=== PATIENT | male | born 1940 | race Caucasian/White ===

== ENCOUNTER 2018-09-20 18:31 | Emergency (ER) | payer OTHER ==
[~2018-09-20] VITALS: Ht 182.9 cm; Wt 72.6 kg
[~2018-09-20 18:31] MED LIST: ALBU90OI6 INH; AZIT500 PO; CEFD300 PO; FINA5 PO; GABA100 PO; HYDACE10B PO; HYDACE5 PO; Hydrocodone-Ap1 EA20 PO; IBUP800 PO; LISI5 PO; OXYC15ER PO; OXYMETAZOLINE; PROM25 PO; Percocet 5-3251 EACH PO; ROBITUSSIN100 MG/5 M PO; SIMV10 PO; VALACYCLOVIR1000 MG PO; [UNRECOGNIZED DRUG - REMARK]
== END 2018-09-20 19:49 | disposition home or self-care (01) ==
LOC: ER 18:31
DX: S01.81XA Laceration without foreign body of other part of head, initial encounter (principal); S16.1XXA Strain of muscle, fascia and tendon at neck level, initial encounter; F10.129 Alcohol abuse with intoxication, unspecified; W01.198A Fall on same level from slipping, tripping and stumbling with subsequent striking against other object, initial encounter; I10 Essential (primary) hypertension; E78.5 Hyperlipidemia, unspecified; F17.210 Nicotine dependence, cigarettes, uncomplicated
CPT/HCPCS: 70450; 72125; 99284-25

== ENCOUNTER → 2020-11-02 | Outpatient (CLI) | payer OTHER ==
[2020-11-02 19:36] LABS: Red Blood Cells, Urine 0-2 /hpf (0-2); White Blood Cells, Urine 0-2 /hpf (0-5)
[2020-11-02 19:37] LABS: Bacteria Rare /hpf; Other Crystals Few /hpf; Squamous Epithelial Cells Not Seen /hpf (Few)
== END ==
LOC: LAB SHORT 13:40
PROVIDERS: Nurse Practitioner Family
DX: N40.1 Benign prostatic hyperplasia with lower urinary tract symptoms (principal); R31.9 Hematuria, unspecified; R63.4 Abnormal weight loss
CPT/HCPCS: 81015

== ENCOUNTER 2021-01-26 11:15 | Emergency (ER) | payer OTHER ==
[~2021-01-26] VITALS: Ht 180.3 cm; Wt 68.0 kg
[2021-01-26] MEDS ORDERED: FLUTICASONE-SA1 EAC1 INH (13:57)
[2021-01-26] MEDS ORDERED: SILODOSIN8 MG PO (13:57)
[2021-01-26 15:31] LABS: BASOPHILS ABSOLUTE AUTO 0.08 K/mm3 (0.00-0.23); BASOPHILS PERCENT AUTO 1 % (0-2); EOSINOPHILS ABSOLUTE AUTO 0.39 K/mm3 (0.00-0.68); EOSINOPHILS PERCENT AUTO 3 % (0-6); Hematocrit 38.7 % (37.0-53.0); IMMATURE GRAN ABSOLUTE AUTO 0.04 K/mm3 (0.00-0.10); IMMATURE GRAN PERCENT AUTO 0 % (0-1); LYMPHOCYTES ABSOLUTE AUTO 3.02 K/mm3 (0.84-5.20); LYMPHOCYTES PERCENT AUTO 24 % (21-46); MONOCYTES ABSOLUTE AUTO 0.61 K/mm3 (0.16-1.47); MONOCYTES PERCENT AUTO 5 % (4-13); Mean Corpuscular HGB 27.7 pg (26.0-34.0); Mean Corpuscular HGB Conc 33.6 g/dL (31.5-36.5); Mean Corpuscular Volume 83 fL (80-100); Mean Platelet Volume 9.4 fL (9.1-12.4); NEUTROPHILS ABSOLUTE AUTO 8.24 K/mm3 (1.96-9.15); NEUTROPHILS PERCENT AUTO 67 % (41-73); Platelet Count 338 K/mm3 (150-400); RDW Coefficient Variation 15.4 % (11.7-14.2); RDW Standard Deviation 46.8 fL (35.1-46.3); Red Blood Cell Count 4.69 M/mm3 (4.30-5.90); White Blood Cell Count 12.38 K/mm3 (4.00-11.30)
[2021-01-26 15:57] LABS: Alanine Aminotransfer (ALT/SGP 19 U/L (12-78); Albumin, Blood 4.2 g/dL (3.4-5.0); Albumin/Globulin Ratio 1.2 (0.8-1.8); Alk Phos 61 U/L (50-136); Anion Gap 3 mmol/L (6-16); Aspartate Aminotrans (AST/SGOT 12 U/L (12-37); Bilirubin, Total 0.6 mg/dL (0.1-1.0); Blood Urea Nitrogen 10 mg/dL (8-24); Bun/Creatinine Ratio 13.1 (12.0-20.0); CO2, Blood 29 mmol/L (21-32); Calcium, Blood 9.7 mg/dL (8.5-10.1); Chloride, Blood 100 mmol/L (98-108); Creatinine, Blood 0.76 mg/dL (0.60-1.20); Globulin, Blood 3.6 g/dL (2.2-4.0); Glomerular Filtration Rate >60 (60-); Glucose, Blood 92 mg/dL (70-99); Potassium, Blood 4.1 mmol/L (3.5-5.5); Sodium, Blood 132 mmol/L (136-145); Total Protein, Blood 7.8 g/dL (6.4-8.2)
== END 2021-01-26 16:50 | disposition left against medical advice (07) ==
LOC: ER 11:15
PROVIDERS: Emergency Medicine
DX: H53.2 Diplopia (principal); Z79.899 Other long term (current) drug therapy
CPT/HCPCS: 36415; 70450; 80053; 85025; 99284-25; A9270

== ENCOUNTER → 2022-04-16 | Outpatient (CLI) | payer OTHER ==
[~2022-04-16] MED LIST changes: +FLUTICASONE-SA1 EAC1 INH; +SILODOSIN8 MG PO
== END | disposition home or self-care (01) ==
LOC: LAB SHORT 16:30 → LAB 16:30
PROVIDERS: Nurse Practitioner Family
DX: Z51.81 Encounter for therapeutic drug level monitoring (principal); Z79.899 Other long term (current) drug therapy
CPT/HCPCS: G0480

== ENCOUNTER 2024-10-04 19:13 | Inpatient (IN) | payer OTHER ==
[~2024-10-04] VITALS: Ht 182.9 cm; Wt 61.1 kg
[~2024-10-04 19:13] MED LIST changes: -SIMV10 PO; +Simvastatin10 MG PO
[2024-10-04 20:00] LABS: BASOPHILS ABSOLUTE AUTO 0.05 K/mm3 (0.00-0.23); BASOPHILS PERCENT AUTO 0 % (0-2); EOSINOPHILS ABSOLUTE AUTO 0.17 K/mm3 (0.00-0.68); EOSINOPHILS PERCENT AUTO 1 % (0-6); Hematocrit 29.9 % (37.0-53.0); Hemoglobin 10.5 g/dL (13.5-17.5); IMMATURE GRAN ABSOLUTE AUTO 0.07 K/mm3 (0.00-0.10); IMMATURE GRAN PERCENT AUTO 1 % (0-1); LYMPHOCYTES ABSOLUTE AUTO 1.81 K/mm3 (0.84-5.20); LYMPHOCYTES PERCENT AUTO 14 % (21-46); MONOCYTES PERCENT AUTO 7 % (4-13); Mean Corpuscular HGB 28.1 pg (26.0-34.0); Mean Corpuscular HGB Conc 35.1 g/dL (31.5-36.5); Mean Corpuscular Volume 80 fL (80-100); Mean Platelet Volume 8.8 fL (9.1-12.4); NEUTROPHILS ABSOLUTE AUTO 10.09 K/mm3 (1.96-9.15); NEUTROPHILS PERCENT AUTO 77 % (41-73); Platelet Count 414 K/mm3 (150-400); RDW Coefficient Variation 13.9 % (11.7-14.2); RDW Standard Deviation 40.7 fL (35.1-46.3); Red Blood Cell Count 3.74 M/mm3 (4.30-5.90); White Blood Cell Count 13.09 K/mm3 (4.00-11.30)
[2024-10-04 20:21] LABS: Albumin/Globulin Ratio 0.7 (0.8-1.8); Bilirubin, Total 0.5 mg/dL (0.1-1.0); Bun/Creatinine Ratio 16.8 (12.0-20.0); Calcium, Blood 8.9 mg/dL (8.5-10.1); Creatinine, Blood 0.95 mg/dL (0.60-1.20); Globulin, Blood 4.4 g/dL (2.2-4.0); Potassium, Blood 3.7 mmol/L (3.5-5.5); Total Protein, Blood 7.4 g/dL (6.4-8.2)
[2024-10-04] MEDS ORDERED: NS 1,000 ML IV SCH (23:15)
[2024-10-05] MEDS ORDERED: NS 1,000 ML IV SCH (00:10)
[2024-10-05] MEDS ORDERED: FLU VACC TS2024-25(6MOS UP)/PF 45 MCG/0.5 ML SYRINGE IM ONE (00:10)
[2024-10-05] MEDS ORDERED: Ondansetron HCl 2 MG / ML 2ML Vial IV PRN (00:10)
[2024-10-05 01:02] LABS: International Normalized Ratio 1.31; Prothrombin Time Results 13.7 Sec (9.7-11.5)
[2024-10-05 01:09] LABS: C-REACTIVE PROTEIN, EXT RANGE 13.3 mg/dL (0.000-0.300)
[2024-10-05 02:07] LABS: Free Thyroxine 1.34 ng/dL (0.70-1.60); Thyroid Stimulating Hormone 1.8 uIU/mL (0.360-4.800)
[2024-10-05 02:59] VITALS: BP 112/69
[2024-10-05 03:50] VITALS: BP 112/62
--- NOTE | 2024-10-05 04:55 | NUR ---
SHIFT SUMMARY; ADMISSION COMPLETED. DR ANGEL IN FOR BEDSIDE ASSESSMENT.
[2024-10-05 06:54] LABS: BASOPHILS ABSOLUTE AUTO 0.04 K/mm3 (0.00-0.23); BASOPHILS PERCENT AUTO 1 % (0-2); EOSINOPHILS ABSOLUTE AUTO 0.44 K/mm3 (0.00-0.68); EOSINOPHILS PERCENT AUTO 6 % (0-6); Hematocrit 27.7 % (37.0-53.0); Hemoglobin 9.3 g/dL (13.5-17.5); IMMATURE GRAN ABSOLUTE AUTO 0.02 K/mm3 (0.00-0.10); IMMATURE GRAN PERCENT AUTO 0 % (0-1); LYMPHOCYTES ABSOLUTE AUTO 1.71 K/mm3 (0.84-5.20); LYMPHOCYTES PERCENT AUTO 21 % (21-46); MONOCYTES ABSOLUTE AUTO 0.81 K/mm3 (0.16-1.47); MONOCYTES PERCENT AUTO 10 % (4-13); Mean Corpuscular HGB Conc 33.6 g/dL (31.5-36.5); Mean Corpuscular Volume 80 fL (80-100); Mean Platelet Volume 9.3 fL (9.1-12.4); NEUTROPHILS ABSOLUTE AUTO 5.04 K/mm3 (1.96-9.15); NEUTROPHILS PERCENT AUTO 63 % (41-73); Platelet Count 362 K/mm3 (150-400); RDW Coefficient Variation 13.8 % (11.7-14.2); RDW Standard Deviation 40.1 fL (35.1-46.3); Red Blood Cell Count 3.45 M/mm3 (4.30-5.90); White Blood Cell Count 8.06 K/mm3 (4.00-11.30)
[2024-10-05 07:24] LABS: Albumin, Blood 2.4 g/dL (3.4-5.0); Albumin/Globulin Ratio 0.7 (0.8-1.8); Bilirubin, Total 0.3 mg/dL (0.1-1.0); Calcium, Blood 8.4 mg/dL (8.5-10.1); Creatinine, Blood 0.84 mg/dL (0.60-1.20); Globulin, Blood 3.6 g/dL (2.2-4.0); Potassium, Blood 3.6 mmol/L (3.5-5.5)
[2024-10-05 07:36] VITALS: BP 117/61
[2024-10-05] MEDS ORDERED: Enoxaparin 40 MG/0.4 ML SYR SC SCH (09:00)
[2024-10-05] MEDS ORDERED: Acetaminophen 325 MG TABLET PO PRN (09:20)
[2024-10-05] MEDS ORDERED: Mometasone/Formoterol MDI 200/5 mcg 13 GM INH SCH (14:40)
[2024-10-05 17:01] VITALS: BP 99/56
--- NOTE | 2024-10-05 17:48 | NUR ---
no changes for pt during the day. pt had c/o headache in the morning. prn medications resolved.
[2024-10-05 19:42] VITALS: BP 99/54
[2024-10-06 04:18] VITALS: BP 133/83
--- NOTE | 2024-10-06 05:14 | NUR ---
SHIFT SUMMARY; PATIENT SLEPT IN LONG INTERVALS. IVF STOPPED. C/O HEADACHE MEDICATED WITH TYLENOL AND COFFEE. RASH ON PLAMS ACTUALLY LOOKS WORSE TODAY. TELE SR @ 76 WITH 1ST DEGREE HB.
[2024-10-06 06:36] LABS: BASOPHILS ABSOLUTE AUTO 0.06 K/mm3 (0.00-0.23); BASOPHILS PERCENT AUTO 1 % (0-2); EOSINOPHILS ABSOLUTE AUTO 0.56 K/mm3 (0.00-0.68); EOSINOPHILS PERCENT AUTO 7 % (0-6); Hematocrit 27.1 % (37.0-53.0); Hemoglobin 8.9 g/dL (13.5-17.5); IMMATURE GRAN ABSOLUTE AUTO 0.03 K/mm3 (0.00-0.10); IMMATURE GRAN PERCENT AUTO 0 % (0-1); LYMPHOCYTES ABSOLUTE AUTO 1.71 K/mm3 (0.84-5.20); LYMPHOCYTES PERCENT AUTO 21 % (21-46); MONOCYTES ABSOLUTE AUTO 0.71 K/mm3 (0.16-1.47); MONOCYTES PERCENT AUTO 9 % (4-13); Mean Corpuscular HGB 26.6 pg (26.0-34.0); Mean Corpuscular HGB Conc 32.8 g/dL (31.5-36.5); Mean Corpuscular Volume 81 fL (80-100); Mean Platelet Volume 8.9 fL (9.1-12.4); NEUTROPHILS PERCENT AUTO 63 % (41-73); Platelet Count 373 K/mm3 (150-400); RDW Coefficient Variation 13.9 % (11.7-14.2); Red Blood Cell Count 3.35 M/mm3 (4.30-5.90); White Blood Cell Count 8.27 K/mm3 (4.00-11.30)
[2024-10-06 06:57] LABS: Bun/Creatinine Ratio 12.4 (12.0-20.0); Calcium, Blood 8.4 mg/dL (8.5-10.1); Creatinine, Blood 0.73 mg/dL (0.60-1.20); Potassium, Blood 3.7 mmol/L (3.5-5.5)
[2024-10-06 07:25] VITALS: BP 127/88
[2024-10-06] MEDS ORDERED: Lisinopril 5 MG Tab PO SCH (09:00)
[2024-10-06] MEDS ORDERED: Atorvastatin 10 MG Tab PO SCH (09:00)
[2024-10-06] MEDS ORDERED: Tamsulosin HCl 0.4 MG Cap PO SCH (09:00)
[2024-10-06] MEDS ORDERED: Finasteride 5 MG Tab PO SCH (09:00)
[2024-10-06] MEDS ORDERED: Sodium Chloride 1 GM TAB PO SCH (10:00)
[2024-10-06] MEDS ORDERED: HYDROcodone 5-APAP 325 TAB PO PRN ×2 (11:55→16:25)
[2024-10-06 12:32] VITALS: BP 107/64
[2024-10-06] MEDS ORDERED: PredniSONE 20 MG Tab PO SCH (15:00)
[2024-10-06 16:09] VITALS: BP 109/54
[2024-10-06] MEDS ORDERED: Hydrocortisone 1% Cream 30 gm TOP SCH (17:00)
[2024-10-06] MEDS ORDERED: BUPRENORPHN-NA1 EAC2 SL (17:59)
[2024-10-06] MEDS ORDERED: METO50ER PO (18:01)
[2024-10-06] MEDS ORDERED: XARELTO20 M1 PO (18:02)
[2024-10-06] MEDS ORDERED: BUDESONIDE-FO10.2 G3 INH (18:04)
[2024-10-06 19:20] VITALS: BP 117/69
--- NOTE | 2024-10-06 19:55 | NUR ---
SUMMARY- PT A/O X3, MILD CONFUSION. PT AMBULATES SBA. HAD A SHOWER TODYA. NO DERM CONSULT AVAILABLE UNTIL 10/11. DR GARCIA STARTED PREDNISONE AND CORTISONE CREAM TO RED RASH OF UNKNONW ORIGIN. PAIN WAS NOT CONTROLLED WITH TYLENOL, ADJUSTMENTS MADE FOR NORCO WHICH IS EFFECTIVE FOR PAIN CONTROL. STARTED ON SODIUM TABS, NA IS SLOWLY INCREASING. WILL REPORT TO NOC RN
[2024-10-07 00:02] VITALS: BP 121/71
[2024-10-07 04:10] VITALS: BP 131/72
--- NOTE | 2024-10-07 05:53 | NUR ---
SHIFT SUMMARY PT SLEPT INTERMITTENTLY THROUGH THE NIGHT. BLISTER/RASH TO ROMERO HANDS/ARMS REMAINS UNCHANGED. MEDICATED FOR PAIN PER EMAR. STEROID CREAM APPLIED PER ORDER. PT OOB WITH SBA. BED IN LOWEST POSITION, CALL LIGHT WITHIN REACH, SIDERAILS UP X2.
[2024-10-07 06:37] LABS: BASOPHILS ABSOLUTE AUTO 0.01 K/mm3 (0.00-0.23); BASOPHILS PERCENT AUTO 0 % (0-2); EOSINOPHILS PERCENT AUTO 0 % (0-6); Hematocrit 27.8 % (37.0-53.0); Hemoglobin 9.3 g/dL (13.5-17.5); IMMATURE GRAN ABSOLUTE AUTO 0.04 K/mm3 (0.00-0.10); IMMATURE GRAN PERCENT AUTO 1 % (0-1); LYMPHOCYTES ABSOLUTE AUTO 0.98 K/mm3 (0.84-5.20); LYMPHOCYTES PERCENT AUTO 13 % (21-46); MONOCYTES ABSOLUTE AUTO 0.14 K/mm3 (0.16-1.47); MONOCYTES PERCENT AUTO 2 % (4-13); Mean Corpuscular HGB 26.8 pg (26.0-34.0); Mean Corpuscular HGB Conc 33.5 g/dL (31.5-36.5); Mean Corpuscular Volume 80 fL (80-100); Mean Platelet Volume 9.5 fL (9.1-12.4); NEUTROPHILS ABSOLUTE AUTO 6.58 K/mm3 (1.96-9.15); NEUTROPHILS PERCENT AUTO 85 % (41-73); Platelet Count 414 K/mm3 (150-400); RDW Coefficient Variation 13.8 % (11.7-14.2); RDW Standard Deviation 40.4 fL (35.1-46.3); Red Blood Cell Count 3.47 M/mm3 (4.30-5.90); White Blood Cell Count 7.75 K/mm3 (4.00-11.30)
[2024-10-07 07:02] LABS: Bun/Creatinine Ratio 21.9 (12.0-20.0); Calcium, Blood 8.8 mg/dL (8.5-10.1); Creatinine, Blood 0.73 mg/dL (0.60-1.20); Potassium, Blood 4.1 mmol/L (3.5-5.5)
--- NOTE | 2024-10-07 07:35 | NUR ---
ASSUMPTION OF CARE: ASSUMED CARE OF PATIENT. ASLEEP DURING SHIFT CHANGE REPORT. LYING IN BED, EYES PARTIALLY OPEN, BUT SNORING. LOWEST POSITION. CALL LIGHT WITHIN REACH. NO ACUTE NEEDS.
[2024-10-07 07:43] VITALS: BP 125/80
[2024-10-07] MEDS ORDERED: ACET325 PO (12:22)
[2024-10-07] MEDS ORDERED: CORTISONE60 GM TP (12:23)
[2024-10-07] MEDS ORDERED: PRED20 PO (12:24)
[2024-10-07] MEDS ORDERED: Flomax0.4 MG PO (12:25)
[2024-10-07] MEDS ORDERED: SODCHL1 PO (12:25)
--- NOTE | 2024-10-07 19:16 | NUR ---
DISHARGE SUMMARY: A&Ox4. PLEASANT AND COOPERATIVE c CARE. CALLS APPROPRIATELY AND IS ABLE TO ADVOCATE NEEDS EFFECTIVELY. AMBULTES c SBA. CONTINENT O FBOWEL AND BLADDER. MEDS HWOLE c FLUIDS. LBM TODAY. C/O MARILIA IN HANDS AND REQUESTS PAIN MEDS TWICE. MEDS TO [facility]. F/U c PCP AND DERM.
== END 2024-10-07 13:50 | disposition home or self-care (01) | DRG 607 ==
LOC: ER 19:13 → MEDS 19:14 → ENPENDDIS 10-07 12:25 → MEDS 10-07 13:50
PROVIDERS: Emergency Medicine; Family Medicine; Student in an Organized Health Care Education/Training Program; ADMIT Internal Medicine
DX: R21 Rash and other nonspecific skin eruption (principal); E87.1 Hypo-osmolality and hyponatremia; D64.9 Anemia, unspecified; N40.0 Benign prostatic hyperplasia without lower urinary tract symptoms; M06.9 Rheumatoid arthritis, unspecified; E78.5 Hyperlipidemia, unspecified; I10 Essential (primary) hypertension; F17.210 Nicotine dependence, cigarettes, uncomplicated; E86.0 Dehydration; G62.9 Polyneuropathy, unspecified; S60.222A Contusion of left hand, initial encounter; S60.221A Contusion of right hand, initial encounter; X58.XXXA Exposure to other specified factors, initial encounter; Z79.51 Long term (current) use of inhaled steroids; Z87.01 Personal history of pneumonia (recurrent)
CPT/HCPCS: 36415; 71046; 80048; 80053; 83605; 83880; 84145; 84439; 84443; 85025; 85610; 85651; 85730; 86140; 87040; 94640; 94664; 94760; 96360; 99284-25; A9270; G0378; J1650; J7030; J7512

== ENCOUNTER → 2025-02-11 | Outpatient (CLI) | payer OTHER ==
[~2025-02-11] MED LIST changes: +ACET325 PO; +BUDESONIDE-FO10.2 G3 INH; +BUPRENORPHN-NA1 EAC2 SL; +CORTISONE60 GM TP; +Flomax0.4 MG PO; +METO50ER PO; +PRED20 PO; +SODCHL1 PO; +XARELTO20 M1 PO
[2025-02-14 18:54] LABS: 6-ACETYLMORPHINE, URN, QUANT <10 ng/mL; CODEINE, URN, QUANT <20 ng/mL; HYDROCODONE, URN, QUANT 70 ng/mL; HYDROMORPHONE, URN, QUANT <20 ng/mL; MORPHINE, URN, QUANT <20 ng/mL; NORHYDROCODONE, URN, QUANT 37 ng/mL; NOROXYCODONE, URN, QUANT <20 ng/mL; NOROXYMORPHONE, URN, QUANT 29 ng/mL; OXYCODONE, URN, QUANT <20 ng/mL; OXYMORPHONE, URN, QUANT <20 ng/mL
== END ==
LOC: LAB 12:19 → LAB SHORT 12:19
PROVIDERS: Family Medicine
DX: F11.20 Opioid dependence, uncomplicated (principal); I10 Essential (primary) hypertension
CPT/HCPCS: G0480